=== PATIENT | female | born 2000 | race Caucasian/White ===

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

== ENCOUNTER 2018-05-15 17:41 | Emergency (ER) | payer MEDICAID, OTHER ==
[2018-05-15] MEDS: IBUPROFEN 600 MG TAB PO (20:37)
[2018-05-15 20:44] LABS: URINE BLOOD (Dip) POC Negative (NEGATIVE); URINE GLUCOSE (Dip) POC Negative (NEGATIVE); URINE KETONES (Dip) POC Trace (NEGATIVE); URINE LEUKOCYTE EST (Dip) POC 1+ (NEGATIVE); URINE NITRITE (Dip) POC Negative (NEGATIVE); URINE TOTAL PROTEIN POC 2+ (NEGATIVE)
[2018-05-15 20:44] LABS: URINE PH (Dip) POC 5.5 (5.0-8.5)
[2018-05-15] MEDS: CEFTRIAXONE 1 GM INJ IM (21:01)
== END 2018-05-15 21:11 | disposition home or self-care (01) ==
LOC: FTE 17:41
DX: N39.0 Urinary tract infection, site not specified (principal); R00.0 Tachycardia, unspecified
CPT/HCPCS: 81003; 81025; 93005; 96372; 99284-25

== ENCOUNTER 2018-05-20 20:33 | Emergency (ER) | payer MEDICAID ==
[2018-05-20] MEDS: ACETAMINOPHEN 500 MG TAB PO (21:55)
[2018-05-20] MEDS: SOD CHLORIDE 0.9% 1,000 ML IV (21:55)
[2018-05-20 21:59] LABS: WHITE BLOOD COUNT 10.1 10^3/ul (4.8-10.8)
[2018-05-20 21:59] LABS: ABNORMAL IP MESSAGE 1; HEMOGLOBIN 12.9 g/dl (12.0-16.0); MEAN CORPUSCULAR HEMOGLOBIN 31.1 pg (29.0-33.0); MEAN CORPUSCULAR HGB CONC 33.9 g/dl (32.0-37.0); MEAN CORPUSCULAR VOLUME 91.6 fl (72.0-104.0); MEAN PLATELET VOLUME 9.4 fl (7.4-10.4); PLATELET COUNT 315 10^3/UL (140-415); RED BLOOD COUNT 4.15 10^6/ul (4.20-5.40); RED CELL DISTRIBUTION WIDTH 14.5 % (11.5-14.5)
[2018-05-20 22:01] LABS: ADD MAN DIFF? YES; POSITIVE DIFF @See below
[2018-05-20 22:31] LABS: ALANINE AMINOTRANSFERASE 214 IU/L (13-69); ALBUMIN 3.6 g/dl (3.3-4.9); ALBUMIN/GLOBULIN RATIO 0.87; ALKALINE PHOSPHATASE 154 IU/L (42-121); ANION GAP 13 (8-16); ASPARTATE AMINO TRANSFERASE 116 IU/L (15-46); BILIRUBIN,INDIRECT 0.8 mg/dl (0-1.1); BILIRUBIN,TOTAL 0.8 mg/dl (0.2-1.3); BLOOD UREA NITROGEN 7 mg/dl (7-20); CALCIUM 7.9 mg/dl (8.4-10.2); CARBON DIOXIDE 25 mmol/L (21-31); CHLORIDE 97 mmol/L (97-110); CREATININE 0.96 mg/dl (0.44-1.00); GLUCOSE 120 mg/dl (70-220); LIPASE 123 U/L (23-300); POTASSIUM 3.4 mmol/L (3.5-5.1); SODIUM 132 mmol/L (135-144); TOTAL PROTEIN 7.7 g/dl (6.1-8.1)
[2018-05-20 23:01] LABS: ADD UMIC NO; UR ASCORBIC ACID NEGATIVE (NEGATIVE); UR BILIRUBIN (Dip) NEGATIVE (NEGATIVE); UR BLOOD (Dip) NEGATIVE (NEGATIVE); UR CLARITY CLEAR (CLEAR); UR COLOR YELLOW (YELLOW); UR GLUCOSE (Dip) NEGATIVE (NEGATIVE); UR KETONES (Dip) NEGATIVE (NEGATIVE); UR LEUKOCYTE ESTERASE (Dip) NEGATIVE Leu/ul (NEGATIVE); UR NITRITE (Dip) NEGATIVE (NEGATIVE); UR SPECIFIC GRAVITY (Dip) 1.014 (1.003-1.030); UR TOTAL PROTEIN (Dip) NEGATIVE (NEGATIVE); UR UROBILINOGEN (Dip) 2+ mg/dL (NEGATIVE)
[2018-05-20 23:07] LABS: ECHINOCYTOSIS 1+ (0-0); ELLIPTO 1+ (0-0); EOSINOPHILS % (M) 3 % (0-7); LYMPHOCYTES #M 5.5 10^3/ul (0.8-2.9); LYMPHOCYTES % (M) 55 % (18-55); MONOCYTE #M 0.6 10^3/ul (0.3-0.9); MONOCYTES % (M) 6 % (0-13); PLATELET ESTIMATE NORMAL; POIKILOCYTOSIS 1+ (0-0); REACTIVE LYMPHOCYTES #M 1.2 10^3/ul (0.0-0.0); REACTIVE LYMPHOCYTES% (M) 12 % (0-0); SEGMENTED NEUTROPHILS (M) % 24 % (30-74)
== END 2018-05-20 23:17 | disposition home or self-care (01) ==
LOC: FTE 20:33
DX: R42 Dizziness and giddiness (principal)
CPT/HCPCS: 36415; 80053; 81003; 81025; 83690; 85025; 99284-25